=== PATIENT | female | born 1985 | race Two or more races ===

== ENCOUNTER 2023-07-14 08:15 | Inpatient (IN) | payer OTHER ==
[~2023-07-14] VITALS: Ht 167.6 cm; Wt 99.8 kg
[2023-07-14 10:05] LABS: PH,URINE 6.5 (5.0-8.0); URINE APPEARANCE Clear; URINE BILIRRUBIN Negative (NEGATIVE); URINE BLOOD Negative; URINE COLOR Yellow; URINE GLUCOSE Negative (NEGATIVE); URINE LEUKOCYTE Trace; URINE NITRATE Negative; URINE PROTEIN Negative (NEGATIVE); URINE UROBILINOGEN 0.2 E.U./dl
[2023-07-14 10:09] LABS: URINE BACTERIA 686.6 uL (0.0-1933); URINE EPITHELIAL CELLS 47.5 uL (0.0-38.8); URINE RBC 4.4 uL (0.0-20.8); URINE WBC 12.6 uL (0.0-23.2)
[2023-07-14 10:19] LABS: HEMATOCRIT 41.5 % (36.0-45.00); HEMOGLOBIN 14.4 g/dL (12.0-15.00); MEAN CELL VOLUME 90.6 fL (80.00-100.00); MEAN CORPUSCULAR HEMOGLOBIN 31.5 pg (27.00-32.0); MEAN CORPUSCULAR HGB CONC 34.7 g/dl (32.0-36.0); PLATELET COUNT 146 K/uL (150-450); RED BLOOD COUNT 4.57 M/uL (4.00-6.00); RED CELL DISTRIBUTION WIDTH 15.7 % (11.5-14.5)
[2023-07-14] MEDS ORDERED: LABETALOL HCL200 MG PO (10:25)
[2023-07-14] MEDS ORDERED: INTEGRA PLUS C1 EACH PO (10:26)
[2023-07-14] MEDS ORDERED: ADULT LOW DOSE81 M1 PO (10:26)
[2023-07-14 10:34] LABS: INR 0.97; PARTIAL THROMBOPLASTIN TIME 26.8 SECONDS (22.0-34.0); PROTHROMBIN TIME 10.2 SECONDS (9.0-11.5)
[2023-07-14 10:52] LABS: ALBUMIN 2.9 gm/dL (3.4-5.0); BILIRUBIN TOTAL 0.62 mg/dL (0.3-1.2); CALCIUM 8.8 mg/dL (8.5-10.1); CREATININE SERUM 0.45 mg/dL (0.55-1.02); GFR 154.32; GLOBULINA 3.3 G/DL (2.4-3.5); POTASSIUM 3.95 mEq/L (3.5-5.1); TOTAL PROTEIN 6.2 gm/dL (6.4-8.2)
[2023-07-20 16:15] LABS: ABG PH 7.294 (7.35-7.45); ABG pCO2 45.6 mmHg (35-45)
[2023-07-20 16:16] LABS: ABG PO2 28.7 mmHg (80-100); BASE EXCESS -4.9 mmol/l; BICARBONATE 21.6 mmol/l (23-25); SaO2 45.1 %; o2 21 %
[2023-07-20 22:17] LABS: HEMATOCRIT 40.6 % (36.0-45.00); HEMOGLOBIN 14.2 g/dL (12.0-15.00); MEAN CORPUSCULAR HEMOGLOBIN 31.9 pg (27.00-32.0); MEAN CORPUSCULAR HGB CONC 35.1 g/dl (32.0-36.0); PLATELET COUNT 134 K/uL (150-450); RED BLOOD COUNT 4.46 M/uL (4.00-6.00); RED CELL DISTRIBUTION WIDTH 14.6 % (11.5-14.5)
[2023-07-22] MEDS ORDERED: COLACE100 MG PO (12:47)
[2023-07-22] MEDS ORDERED: IBU800 MG PO (12:48)
[2023-07-22] MEDS ORDERED: SIMETHICONE125 M1 PO (12:48)
== END 2023-07-22 14:50 | disposition home or self-care (01) | DRG 784 ==
LOC: SURG 07-20 07:00 → O/R 07-20 07:58 → SURG 07-20 08:15 → OB/GYN 07-20 19:16
PROVIDERS: ADMIT Specialist; ATTEND Specialist
PROC: 0UB70ZZ Excision of Bilateral Fallopian Tubes, Open Approach (ICD-10-PCS; 2023-07-20)
PROC: 4A1HXCZ Monitoring of Products of Conception, Cardiac Rate, External Approach (ICD-10-PCS; 2023-07-20)
PROC: 10D00Z1 Extraction of Products of Conception, Low, Open Approach (ICD-10-PCS; principal; 2023-07-20 07:00)
DX: O34.211 Maternal care for low transverse scar from previous cesarean delivery (principal); O10.02 Pre-existing essential hypertension complicating childbirth; Z30.2 Encounter for sterilization; Z37.0 Single live birth; Z20.822 Contact with and (suspected) exposure to COVID-19; Z3A.37 37 weeks gestation of pregnancy